=== PATIENT | male | born 1995 | race Asian ===

== ENCOUNTER 2018-08-24 17:03 | Emergency (ER) | payer SELFPAY ==
[~2018-08-24] VITALS: Ht 170.2 cm; Wt 59.9 kg
[2018-08-24 17:22] VITALS: BP 128/86
--- NOTE | 2018-08-24 17:24 | NUR ---
PATIENT AMBULATED TO ER BED 4.
--- NOTE | 2018-08-24 17:31 | NUR ---
22M C/O NON-PRODUCTIVE COUGH X 3 WEEKS, HEADACHE X3-4 DAYS. AOX4. NEURO WNL. ADMITS TO PHARYNGITIS, RHINORRHEA, NASAL CONGESTION. ERYTHEMATOUS TONSILLARPHARYNX. LUNGS CTAB. BEDRAIL UP X1, BED LOCKED & LOW. ER TO [facility].
--- NOTE | 2018-08-24 17:38 | NUR ---
DR. SAHNI AT BEDSIDE TO [facility].
[2018-08-24] MEDS ORDERED: predniSONE 20 MG TAB PO ONE (17:45)
[2018-08-24] MEDS ORDERED: ALBUTEROL SULFATE/IPRATROPIU 3 ML SOL IH ONE (17:45)
--- NOTE | 2018-08-24 17:55 | NUR ---
ADMITTING DX: COUGH HX: DENIES ASTHMA C/O SOB LOC AWAKE AND ALERT VERBALLY RESPONSIVE EDUCATION PROVIDED TO PATIENT WITH ACKNOWLEDGEMENT ON [facility] THERAPY AND RESPIRATORY DRUG FOREMENTIONED GIVEN ORDERED ENCOURAGED DEEP BREATHONG DURING THERAPY
[2018-08-24 18:26] VITALS: BP 125/81
--- NOTE | 2018-08-24 18:26 | NUR ---
Patient discharged with v/s stable. Written and verbal after care instructions given and explained. Patient alert, oriented and verbalized understanding of instructions. Ambulatory with steady gait. All questions addressed prior to discharge. ID band removed. Patient advised to follow up with PMD. Rx of PREDNISONE AND ALBUTEROL given. Patient educated on indication of medication including possible reaction and side effects. Opportunity to ask questions provided and answered.
== END 2018-08-24 18:26 | disposition home or self-care (01) ==
LOC: MED 17:03
DX: J45.909 Unspecified asthma, uncomplicated (principal); R51 Headache
CPT/HCPCS: 71045; 94640; 99283; J7512; J7620; Q0092